=== PATIENT | female | born 1965 | race Caucasian/White ===

== ENCOUNTER 2018-09-26 09:14 | Outpatient (CLI) | payer OTHER | END 2018-09-26 15:00 | disposition home or self-care (01) | LOC: LAB 09:14 | DX: D72.818 Other decreased white blood cell count (principal); E03.8 Other specified hypothyroidism; D50.8 Other iron deficiency anemias; D51.8 Other vitamin B12 deficiency anemias; D51.1 Vitamin B12 deficiency anemia due to selective vitamin B12 malabsorption with proteinuria; D51.0 Vitamin B12 deficiency anemia due to intrinsic factor deficiency; D55.0 Anemia due to glucose-6-phosphate dehydrogenase [G6PD] deficiency; E06.3 Autoimmune thyroiditis ==

== ENCOUNTER 2019-02-10 09:08 | Outpatient (CLI) | payer OTHER | END 2019-02-10 09:12 | disposition home or self-care (01) | LOC: LAB 09:08 | DX: D72.818 Other decreased white blood cell count (principal); E03.8 Other specified hypothyroidism; D50.8 Other iron deficiency anemias; D51.8 Other vitamin B12 deficiency anemias; I10 Essential (primary) hypertension ==

== ENCOUNTER → 2019-05-16 07:34 | Outpatient (CLI) | payer OTHER | END | disposition home or self-care (01) | LOC: LAB 07:34 | DX: E03.8 Other specified hypothyroidism (principal); D72.818 Other decreased white blood cell count; R73.01 Impaired fasting glucose; B20 Human immunodeficiency virus [HIV] disease; B18.8 Other chronic viral hepatitis; B27.99 Infectious mononucleosis, unspecified with other complication; D50.8 Other iron deficiency anemias; I10 Essential (primary) hypertension; D51.0 Vitamin B12 deficiency anemia due to intrinsic factor deficiency ==